=== PATIENT | male | born 1990 | race Caucasian/White ===

== ENCOUNTER 2016-09-14 22:43 | Emergency (ER) | payer MEDICAID ==
--- NOTE | ~2016-09-14 | ENPV ---
Vascular Lower Extremities DVT Study Procedure Demographics Patient Name ALVIN SANABRIA Date of Study 09/14/2016 Patient Number [id number] Gender Male Date of 1990 Age 26 Visit Number [id number] Height Accession Number [id number] Weight Room Number BSA BMI Referring Beverly Deleon PAC Interpreting Nelson King MD Physician Jean-Paul Physician Physician Ordering Physician Jean-Paul Hair Worker Blueprinting Machine Operator Nanette Hauser [facility] Conclusions Summary There are several mildly enlarged lymph nodes noted in the inguinal groin. No evidence of deep vein thrombosis or superficial thrombophlebitis in the left lower extremity . Unable to visualize peroneal veins due to swelling and scar tissue. Procedure Type of Study: Veins:Lower Extremities DVT Study, Lower Extremity Left. Indications for Study:Pain in Limb and Swelling of Limb. Appropriate Use Criteria:9 Patient Status:STAT. Study Location:ER. Technical Quality:Adequate visualization. Velocities are measured in cm/s ; Diameters are measured in cm Right Lower Extremities DVT Study Measurements Right 2D and Doppler Measurements + + + + +------+------+ + !Location !Visualized!Compressibility!Thrombosis!Signal!Reflux!Reflux ! ! ! ! ! ! ! !(sec) ! + + + + +------+------+ + !Common !Yes !Yes !None !Phasic! ! ! !Femoral ! ! ! ! ! ! ! + + + + +------+------+ + Left Lower Extremities DVT Study Measurements Left 2D and Doppler Measurements + + + + +------+------+ + !Location !Visualized!Compressibility!Thrombosis!Signal!Reflux!Reflux ! ! ! ! ! ! ! !(sec) ! + + + + +------+------+ + !GSV Thigh !Yes !Yes !None !Phasic! ! ! + + + + +------+------+ + !Common !Yes !Yes !None !Phasic! ! ! !Femoral ! ! ! ! ! ! ! + + + + +------+------+ + !Prox !Yes !Yes !None !Phasic! ! ! !Femoral ! ! ! ! ! ! ! + + + + +------+------+ + !Mid Femoral!Yes !Yes !None !Phasic! ! ! + + + + +------+------+ + !Dist !Yes !Yes !None !Phasic! ! ! !Femoral ! ! ! ! ! ! ! + + + + +------+------+ + !Popliteal !Yes !Yes !None !Phasic! ! ! + + + + +------+------+ + !Gastroc !Yes !Yes !None ! ! ! ! + + + + +------+------+ + !PTV !Yes !Yes !None ! ! ! ! + + + + +------+------+ + !Peroneal !No ! ! ! ! ! ! + + + + +------+------+ + Signature dtt: TAMAR ESPITIA dtnawaf: 09/14/16 4479 Physician Self Edit
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
[2016-09-14 23:15] LABS: BASOPHIL % 0.1 %; HEMATOCRIT 45.9 % (37.0-53.0); HEMOGLOBIN 15.7 g/dL (12.0-17.0); IMMATURE GRANULOCYTE % 0.4 %; LYMPHOCYTE # 0.6 K/uL (0.8-4.0); LYMPHOCYTE % 8.6 %; MCH 29.6 pg (27.0-34.0); MCHC 34.2 gm/dL (32.0-36.5); MCV 86.4 fl (83.0-98.0); MONOCYTE # 0.4 K/uL (0.0-1.0); MONOCYTE % 6.4 %; MPV 10.8 fl (9.4-12.4); NEUTROPHIL # (ANC) 5.7 K/uL (1.4-9.0); NEUTROPHIL % 84.5 %; NRBC % 0 /100WBC (0-0.00); PLATELET COUNT 80 K/uL (150-450); RBC 5.31 M/uL (4.00-6.00); RDW-CV 14.6 % (11.9-14.6); WBC 6.7 K/uL (4.0-11.0)
[2016-09-14 23:32] LABS: ALBUMIN 4.3 gm/dL (3.5-5.0); ALK PHOS 109 IU/L (33-138); ALT 41 IU/L (12-78); ANION GAP 11.8 (10.0-19.0); AST 21 IU/L (10-40); BLOOD UREA NITROGEN 12 mg/dL (6-24); CALCIUM 8.7 mg/dL (8.5-10.5); CHLORIDE 98 mMol/L (96-110); CO2 28 mMol/L (22-32); CREATININE 1.2 mg/dL (0.6-1.3); ESTIMATED GFR (MDRD EQUATION) > 60; POTASSIUM 3.8 mMol/L (3.7-5.1); SODIUM 134 mMol/L (135-145); TOTAL BILIRUBIN 0.5 mg/dL (0.0-1.5); TOTAL PROTEIN 8.4 g/dL (6.0-8.4)
== END 2016-09-15 05:00 | disposition disaster alternative care site (69) ==
LOC: GMED 22:43 → GPCU 09-15 02:51 → GMED 09-15 02:51
PROVIDERS: Nurse Practitioner Family
DX: R51 Headache (principal); R93.0 Abnormal findings on diagnostic imaging of skull and head, not elsewhere classified; E11.9 Type 2 diabetes mellitus without complications; F17.290 Nicotine dependence, other tobacco product, uncomplicated; Z79.899 Other long term (current) drug therapy; Z88.1 Allergy status to other antibiotic agents; Z98.890 Other specified postprocedural states
CPT/HCPCS: J1170; J1885; J2060; J2270; J2405; J3010; J7030

== ENCOUNTER → 2016-09-15 | Outpatient (CLI) | payer MEDICAID | END | disposition disaster alternative care site (69) | LOC: GAMB 05:08 | DX: R29.90 Unspecified symptoms and signs involving the nervous system (principal); Z79.84 Long term (current) use of oral hypoglycemic drugs | CPT/HCPCS: A0425; A0428 ==